=== PATIENT | male | born 1985 | race Caucasian/White ===

== ENCOUNTER 2017-01-04 13:20 | Emergency (ER) | payer SELFPAY ==
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
[2017-01-04 14:21] LABS: CHLORIDE,CL 101 mmol/L (98-107); SODIUM,NA 139 mmol/L (136-145)
[2017-01-04 14:44] VITALS: BP 156/103
== END 2017-01-04 15:30 | disposition home or self-care (01) ==
LOC: VM.ED 13:20
DX: S02.2XXA Fracture of nasal bones, initial encounter for closed fracture (principal); S05.11XA Contusion of eyeball and orbital tissues, right eye, initial encounter; F17.200 Nicotine dependence, unspecified, uncomplicated; Z91.09 Other allergy status, other than to drugs and biological substances; Y04.0XXA Assault by unarmed brawl or fight, initial encounter
CPT/HCPCS: 36415; 70450; 70486; 71101; 80048; 80305; 80349; 81001; 85025; 99284; G0480; 99283-GF

== ENCOUNTER 2022-05-01 17:04 | Emergency (ER) | payer SELFPAY ==
[2022-05-01 17:12] VITALS: BP 122/76; PULSE 124
[2022-05-01] MEDS ORDERED: Acetaminophen 500 MG Tab PO ONE (17:29)
[2022-05-01] MEDS ORDERED: Ibuprofen 200 MG Tab PO ONE (17:31)
[2022-05-01 17:55] LABS: STREP A BY PCR NOT DETECTED (NOT DETECT)
[2022-05-01 18:10] LABS: CORONAVIRUS COVID-19 NAA POSITIVE (NEGATIVE); RESPIRATORY SYNCYTIAL VIR NAA NEGATIVE (NEGATIVE)
== END 2022-05-01 18:32 | disposition home or self-care (01) ==
LOC: VM.ED 17:04
DX: U07.1 COVID-19 (principal); Z91.09 Other allergy status, other than to drugs and biological substances
CPT/HCPCS: 0241U; 87651-QW; 99283; A9270-GY